=== PATIENT | female | born 1970 | race Caucasian/White ===

== ENCOUNTER 2016-07-13 10:45 | Emergency (ER) | payer OTHER ==
[~2016-07-13] VITALS: Ht 170.2 cm; Wt 77.1 kg
[2016-07-13 11:20] VITALS: BP 138/85
== END 2016-07-13 12:33 | disposition home or self-care (01) ==
LOC: ER 10:48
DX: R20.0 Anesthesia of skin (principal)
CPT/HCPCS: 70450; 93005